=== PATIENT | male | born 1930 | race Caucasian/White ===

== ENCOUNTER 2017-12-29 11:14 | Inpatient (IN) | END 2018-01-02 15:40 | DRG 470 ==

== ENCOUNTER 2018-01-02 15:56 | Inpatient (IN) | END 2018-01-18 13:59 | disposition home health service (06) | DRG 561 ==

== ENCOUNTER 2018-05-14 15:49 | Emergency (ER) | END 2018-05-14 18:25 | disposition home or self-care (01) ==